=== PATIENT | female | born 1950 | race Caucasian/White ===

== ENCOUNTER 2018-10-17 12:42 | Inpatient (IN) | payer OTHER, MEDICARE ==
[~2018-10-17] VITALS: Ht 170.2 cm; Wt 79.4 kg
[2018-10-17] MEDS ORDERED: MORPHINE SULFATE 4 MG/1 ML DISP.SYRIN ONE (12:52)
[2018-10-17] MEDS ORDERED: LIDOCAINE-MPF 2% 5 ML VIAL ONE (13:00)
[2018-10-17] MEDS ORDERED: IV NORMAL SALINE 1000 ML BAG ONE (13:00)
[2018-10-17] MEDS ORDERED: PROPOFOL 200 MG/20 ML BOTTLE ONE ×3 (13:00→13:30)
[2018-10-17] MEDS ORDERED: MORPHINE SULFATE 4 MG/1 ML DISP.SYRIN IV ONE (13:00)
[2018-10-17] MEDS ORDERED: PROPOFOL 1,000 MG/100 ML BOTTLE IV ONE ×2 (13:30→14:00)
--- NOTE | 2018-10-17 13:59 | NUR ---
GERI LUI SPOKE TO CASEY CAVANAUGH, DR BINGHAM, AND DR RUIZ FOR M/S ADMIT.
[2018-10-17] MEDS ORDERED: PROPOFOL 200 MG/20 ML BOTTLE IV ONE (14:00)
[2018-10-17 14:34] LABS: BASOPHILS # (AUTO) 0.1 K/uL (0.0-8.0); BASOPHILS % (AUTO) 0.8 % (0.0-2.0); EOSINOPHILS # (AUTO) 0.3 K/uL (0.0-0.7); EOSINOPHILS % (AUTO) 2.6 % (0.0-7.0); HEMATOCRIT 40.8 % (31.2-41.9); HEMOGLOBIN 13.6 g/dL (10.9-14.3); LYMPHOCYTES # (AUTO) 1.3 K/uL (20.0-40.0); LYMPHOCYTES % (AUTO) 13.3 % (20.5-51.5); MEAN CORPUSCULAR HEMOGLOBIN 29.1 uug (24.7-32.8); MEAN CORPUSCULAR HGB CONC 33 g/dL (32.3-35.6); MEAN CORPUSCULAR VOLUME 87.2 fL (75.5-95.3); MONOCYTES # (AUTO) 0.4 K/uL (2.0-10.0); MONOCYTES % (AUTO) 3.9 % (0.0-11.0); NEUTROPHILS # (AUTO) 7.9 K/uL (1.8-8.9); NEUTROPHILS % (AUTO) 79.4 % (38.5-71.5); PLATELET COUNT (AUTO) 209 K/uL (179-408); RED BLOOD CELL COUNT(AUTO) 4.68 MIL/uL (3.63-4.92); WHITE BLOOD COUNT (AUTO) 9.9 K/uL (3.8-11.8)
[2018-10-17 14:41] LABS: CREATININE 0.6 mg/dL (0.6-1.3); POTASSIUM 4.5 mmol/L (3.5-5.1)
--- NOTE | 2018-10-17 14:46 | NUR ---
Pending insurance clearance for admission per ER registration staff DELLA Jaramillo is at the bedside ([facility] hospitalist)
--- NOTE | 2018-10-17 14:54 | NUR ---
Patient and spouse want to be transferred to another hospital, Dr Dallas notified.
[2018-10-17] MEDS ORDERED: ONDANSETRON 4 MG/2 ML VIAL IV PRN (15:00)
[2018-10-17] MEDS ORDERED: Z GUARD REMEDY PASTE 57 GM TUBE TOP PRN (15:00)
[2018-10-17] MEDS ORDERED: MAGNESIUM HYDROXIDE 30 ML LIQUID UDC PO PRN (15:00)
[2018-10-17] MEDS ORDERED: ACETAMINOPHEN 325 MG TABLET PO PRN (15:00)
[2018-10-17] MEDS ORDERED: HYDROCODONE/APAP 5-325MG TABLET PO PRN (15:00)
[2018-10-17 16:14] VITALS: BP 135/87
[2018-10-17] MEDS: MORPHINE SULFATE 2 MG/1 ML DISP.SYRIN IV PRN ×2 (17:16→18:23)
[2018-10-17] MEDS: IV D5 1/2 NS 1000 ML 1,000 ML IV PRN (17:16)
--- NOTE | 2018-10-17 18:49 | NUR ---
Patient received from ER and oriented to room. Patient has significant visual displacement of right leg. Joseph draining clear yellow urine. Patient was provided fluid and Dinner meal and is to be NPO after midnight for possible surgery in the morning. Currently patient in bed, no distress noted, bed in low position, side rails up x2. call light in reach.
[2018-10-17 20:00] VITALS: BP 112/65
--- NOTE | 2018-10-17 20:00 | NUR ---
Received pt. alert oriented x 4 in no pain or discomfort. Pt. has IV in L. AC 20 gauge patent and intact. Pt. has nelson draining clear yellow urine. Pt. has upcoming possible surgery tomorrow morning with no set time. Pt. will be NPO starting midnight. Bed in lowest position, 2 side rails up, locked, and call light within reach. Comfort measures provided. Will continue to monitor.
[2018-10-18 05:23] VITALS: BP 120/76
[2018-10-18] MEDS: IV D5 1/2 NS 1000 ML 1,000 ML IV PRN (06:12)
[2018-10-18] MEDS: MORPHINE SULFATE 2 MG/1 ML DISP.SYRIN IV PRN ×2 (06:23→11:31)
[2018-10-18 06:36] LABS: BASOPHILS % (AUTO) 0.8 % (0.0-2.0); EOSINOPHILS # (AUTO) 0.3 K/uL (0.0-0.7); EOSINOPHILS % (AUTO) 5.2 % (0.0-7.0); LYMPHOCYTES # (AUTO) 1.6 K/uL (20.0-40.0); LYMPHOCYTES % (AUTO) 29.9 % (20.5-51.5); MEAN CORPUSCULAR HEMOGLOBIN 29.1 uug (24.7-32.8); MEAN CORPUSCULAR HGB CONC 34 g/dL (32.3-35.6); MONOCYTES # (AUTO) 0.4 K/uL (2.0-10.0); MONOCYTES % (AUTO) 7.8 % (0.0-11.0); NEUTROPHILS # (AUTO) 3.1 K/uL (1.8-8.9); NEUTROPHILS % (AUTO) 56.3 % (38.5-71.5); PLATELET COUNT (AUTO) 208 K/uL (179-408); RED BLOOD CELL COUNT(AUTO) 4.48 MIL/uL (3.63-4.92)
[2018-10-18 06:46] LABS: WHITE BLOOD COUNT (AUTO) 5.5 K/uL (3.8-11.8)
[2018-10-18 06:59] LABS: CREATININE 0.6 mg/dL (0.6-1.3); PHOSPHOROUS 3.9 mg/dL (2.5-4.9); POTASSIUM 3.9 mmol/L (3.5-5.1)
[2018-10-18] MEDS ORDERED: PANTOPRAZOLE SODIUM 40 MG TABLET.DR PO SCH (07:00)
--- NOTE | 2018-10-18 07:20 | NUR ---
RECEIVED REPORT FROM MACHINE [employer] FLOORPERSON NURSE, PATIENT IN BED AWAKE, NO DISTRESS NOTED AT THIS TIME, BED IN LOW POSITION, SIDE RAILS UPX2, CALL LIGHT IN REACH. PULSE ON RIGHT LOWER EXTREMITY FULL AND BOUNDING.
[2018-10-18 11:16] VITALS: BP 131/82
[2018-10-18 15:39] VITALS: BP 123/75
--- NOTE | 2018-10-18 18:40 | NUR ---
patient was given discharge instructions, iv removed and prescription given to patient. Patient was wheeled to discharge area for machine pecan picker by .
== END 2018-10-18 18:40 | disposition home or self-care (01) | DRG 561 ==
LOC: ER 12:42 → MEDSURG3 15:38
PROVIDERS: ADMIT Student in an Organized Health Care Education/Training Program; ATTEND Student in an Organized Health Care Education/Training Program
PROC: 0SW9XJZ Revision of Synthetic Substitute in Right Hip Joint, External Approach (ICD-10-PCS; principal; 2018-10-17)
PROC: 0SWRXJZ Revision of Synthetic Substitute in Right Hip Joint, Femoral Surface, External Approach (ICD-10-PCS; 2018-10-18)
DX: T84.020A Dislocation of internal right hip prosthesis, initial encounter (principal); Y79.2 Prosthetic and other implants, materials and accessory orthopedic devices associated with adverse incidents; Y92.019 Unspecified place in single-family (private) house as the place of occurrence of the external cause; Z96.653 Presence of artificial knee joint, bilateral; Z96.643 Presence of artificial hip joint, bilateral
CPT/HCPCS: 36415; 71045; 73501; 73502; 73503; 83735; 84100; 85025; 85730; 86850; 86900; 86901; 93005; 97116; 97530; A4663; G0378; G0500; J2270; J3490; J7030; J7040; J7060